=== PATIENT | male | born 1975 | race Caucasian/White ===

== ENCOUNTER 2016-12-17 17:56 | Emergency (ER) | payer BC, MEDICAID ==
[2016-12-17] MEDS ORDERED: Bupivacaine 0.5% 10 ML SDV INJECT ONE (18:02)
[2016-12-17] MEDS ORDERED: Lidocaine 1% 20 ML MDV INJECT ONE (18:02)
--- NOTE | 2016-12-17 18:02 | EDM.PDOC ---
ED HPI GENERAL MEDICAL PROBLEM - General Stated Complaint: PT CUT RT HAND Time Seen by Provider: 12/17/16 18:26 Source of Information: Reports: Patient History Limitations: Reports: No Limitations - History of Present Illness INITIAL COMMENTS - FREE TEXT/NARRATIVE: History of present illness: []Patient was using a chisel to the bottom of a door and it slipped and he cut his left palm of his hand. He denies any other injuries, numbness, tingling. Review of systems: As per history of present illness and below otherwise all systems reviewed and negative. Past medical history: As per history of present illness and as reviewed below otherwise noncontributory. Surgical history: As per history of present illness and as reviewed below otherwise noncontributory. Social history: No reported history of drug or alcohol abuse. Family history: As per history of present illness and as reviewed below otherwise noncontributory. Physical exam: General: Well developed, well nourished in NAD HEENT: Atraumatic, normocephalic, pupils reactive, negative for conjunctival pallor or scleral icterus, mucous membranes moist, throat clear, neck supple, nontender, trachea midline. Lungs: Clear to auscultation, breath sounds equal bilaterally, chest nontender. Heart: S1S2, regular, negative for clicks, rubs, or JVD. Abdomen: Soft, nondistended, nontender. Negative for masses or hepatosplenomegaly. Negative for costovertebral tenderness. Pelvis: Stable nontender. Genitourinary: Deferred. Rectal: Deferred. Extremities: Atraumatic, left thenar eminence with a 2-1/2 cm laceration linear into the subcutaneous tissue. He has full range of motion of his hand sensations intact brisk capillary refill.. Neurovascular unremarkable. Neuro: Awake, alert, oriented. Cranial nerves II through XII unremarkable. Cerebellum unremarkable. Motor and sensory unremarkable throughout. Exam nonfocal. Diagnostics: [] Therapeutics: [] Impression: []Left hand laceration Plan: []Sutures out 7-10 days follow-up as needed with Dr. Laura or return to the ER for any signs of infection or concerns. Definitive disposition and diagnosis as appropriate pending reevaluation and review of above. Left Hand Pain Score (Numeric/FACES): 6 - Related Data Allergies Allergy/AdvReac Type Severity Reaction Status Date / Time No Known Allergies Allergy Verified 02/24/14 22:03 Home Meds: Home Meds . [No Known Home Meds] 12/17/16 [History] Past Medical History - Past Health History Medical/Surgical History: Denies Medical/Surgical History Other Gastrointestinal History: right inguinal hernia Social & Family History - Tobacco Use Smoking Status *Q: Current Every Day Smoker Years of Tobacco use: 10 Used Tobacco, but Quit: No Second Hand Smoke Exposure: Yes - Alcohol Use Days Per Week of Alcohol Use: 2 Number of Drinks Per Day: 6 Total Drinks Per Week: 12 - Recreational Drug Use Recreational Drug Use: Yes Drug Use in Last 12 Months: No Recreational Drug Type: Reports: Cocaine, Marijuana/Hashish, Methamphetamine Recreational Drug Use Frequency: Not Used In Over 1 Year Recreational Drug Last Use: several years ago Review of Systems - Review of Systems Review Of Systems: See Below (See history of present illness) ED EXAM, GENERAL - Physical Exam Exam: See Below (See history of present illness) ED TRAUMA EXTREMITY PROCEDURES - Laceration/Wound Repair Left Hand Lac/Wound Length In cm: 2.5 Appearance: Subcutaneous Distal NVT: Neuro & Vascular Intact Anesthetic Type: Local Local Anesthesia - Lidocaine (Xylocaine): 1% Plain Local Anesthesia - Bupivicaine (Marcaine): 0.5% Plain Local Anesthetic Volume: 2cc Skin Prep: Saline Closed With: Sutures Drain Placement: No Sterile Dressing Applied: Nurse Tetanus Status Addressed: Yes Complications: No Course - Vital Signs Last Recorded V/S: Last Vital Signs Temp 36.3 C 12/17/16 17:59 Pulse 105 H 12/17/16 17:59 Resp 16 12/17/16 17:59 BP 138/90 12/17/16 17:59 Pulse Ox 95 12/17/16 17:59 - Orders/Labs/Meds Meds: Medications Discontinued Medications Generic Name Dose Route Start Last Admin Trade Name Freq PRN Reason Stop Dose Admin Bupivacaine HCl 10 ml 12/17/16 18:02 12/17/16 18:08 Sensorcaine-Mpf 0.5% INJECT 12/17/16 18:03 10 ml ONETIME ONE Administration Lidocaine HCl 20 ml 12/17/16 18:02 12/17/16 18:08 Xylocaine 1% INJECT 12/17/16 18:03 20 ml ONETIME ONE Administration Departure - Departure Time of Disposition: 18:32 Disposition: Still A Patient 30 Condition: Good Clinical Impression: Laceration of left hand Qualifiers: Encounter type: initial encounter Foreign body presence: without foreign body Qualified Code(s): S61.412A - Laceration without foreign body of left hand, initial encounter - Discharge Information Additional Instructions: The following information is given to patients seen in the emergency department who are being discharged to home. This information is to outline your options for follow-up care. We provide all patients seen in our emergency department with a follow-up referral. The need for follow-up, as well as the timing and circumstances, are variable depending upon the specifics of your emergency department visit. If you don't have a primary care physician on staff, we will provide you with a referral. We always advise you to contact your personal physician following an emergency department visit to inform them of the circumstance of the visit and for follow-up with them and/or the need for any referrals to a consulting specialist. The emergency department will also refer you to a specialist when appropriate. This referral assures that you have the opportunity for follow-up care with a specialist. All of these measure are taken in an effort to provide you with optimal care, which includes your follow-up. Under all circumstances we always encourage you to contact your private physician who remains a resource for coordinating your care. When calling for follow-up care, please make the office aware that this follow-up is from your recent emergency room visit. If for any reason you are refused follow-up, please contact the [facility] Emergency Department at and asked to speak to the emergency department charge nurse. Tylenol Motrin for pain ice and elevate above level her heart. Sutures out in 7- 10 days follow-up with hand surgery if needed and otherwise return to the ER for suture removal. [facility] - [facility] Professional Building [address] [place] [address], [address] [place] [address]
[2016-12-17] MEDS ORDERED: Bacitracin Oint 1 GM U/D Packet TOP ONE (18:34)
[2016-12-17 19:14] VITALS: BP 138/90
== END 2016-12-17 18:46 | disposition home or self-care (01) ==
LOC: MW.ED 17:56
DX: S61.412A Laceration without foreign body of left hand, initial encounter (principal); F17.200 Nicotine dependence, unspecified, uncomplicated; W27.0XXA Contact with workbench tool, initial encounter
CPT/HCPCS: 12001; 99282

== ENCOUNTER 2017-01-04 02:46 | Emergency (ER) | payer BC, MEDICAID ==
[2017-01-04] MEDS ORDERED: Ibuprofen 800 MG Tab PO ONE (03:17)
[2017-01-04] MEDS ORDERED: Diphtheria,Pertussis(Acell),Tetanus Vaccine 0.5 ML Syringe IM ONE (03:17)
[2017-01-04] MEDS ORDERED: Cephalexin 500 MG Cap PO ONE (03:19)
[2017-01-04 04:20] VITALS: BP 143/71
== END 2017-01-04 03:51 | disposition home or self-care (01) ==
LOC: MW.ED 02:46
DX: S91.331A Puncture wound without foreign body, right foot, initial encounter (principal); Z23 Encounter for immunization; W45.0XXA Nail entering through skin, initial encounter
CPT/HCPCS: 90471; 90715; 99282; A9270

== ENCOUNTER 2020-06-01 10:58 | Emergency (ER) | payer SELFPAY ==
[2020-06-01] MEDS ORDERED: Sodium Chloride 0.9% 2.5 ML Syringe FLUSH PRN (11:03)
[2020-06-01] MEDS ORDERED: Sodium Chloride 0.9% 10 ML Syringe FLUSH PRN (11:03)
--- NOTE | 2020-06-01 11:37 | EDM.PDOC ---
ED HPI GENERAL MEDICAL PROBLEM - General Chief Complaint: Respiratory Problem Stated Complaint: CHEST PAIN Time Seen by Provider: 06/01/20 11:02 - History of Present Illness INITIAL COMMENTS - FREE TEXT/NARRATIVE: Patient is a 44-year-old male he is on a medication for notable bowel syndrome. He developed fever fatigue myalgias and cough approximately 1 week before testing positive for COVID-19 on May 27. Since he is tested positive he has had generalized chest ache primarily on the left side. He has had a persistent cough and some shortness of breath as well. He has had remittent chills and fever. No nausea or vomiting no abdominal pain or diarrhea. Patient presents today wanting to be checked out because the chest pain is persisted. Chest pain worsens with coughing no alleviating factors. The patient is a smoker he has no personal cardiac history. Chest/Cough Pain Score (Numeric/FACES): 4 - Related Data Allergies Allergy/AdvReac Type Severity Reaction Status Date / Time No Known Allergies Allergy Verified 06/01/20 11:27 Home Meds: Home Meds Dm/Acetaminophen/Doxylamine [Cough & Sore Throat Liquid] 1 dose PO ASDIRECTED 06/01/20 [History] Past Medical History - Past Health History Medical/Surgical History: Denies Medical/Surgical History HEENT History: Reports: None Cardiovascular History: Reports: None Respiratory History: Reports: None Gastrointestinal History: Reports: Other (See Below) Other Gastrointestinal History: right inguinal hernia. Ulcerative Colitis Genitourinary History: Reports: None Musculoskeletal History: Reports: None Neurological History: Reports: None Psychiatric History: Reports: None Endocrine/Metabolic History: Reports: None Hematologic History: Reports: None Immunologic History: Reports: None Oncologic (Cancer) History: Reports: None Dermatologic History: Reports: None - Infectious Disease History Infectious Disease History: Reports: None - Past Surgical History Head Surgeries/Procedures: Reports: None GI Surgical History: Reports: Hernia, Abdominal Musculoskeletal Surgical History: Reports: Shoulder Surgery Social & Family History - Family History Family Medical History: No Pertinent Family History - Tobacco Use Tobacco Use Status *Q: Unknown Ever Used Tobacco - Caffeine Use Caffeine Use: Reports: None - Recreational Drug Use Recreational Drug Use: No ED ROS GENERAL - Review of Systems Review Of Systems: See Below Free Text/Narrative/Comment: General: Per HPI Skin: No rash. Eyes: No vision problems. ENT: No sore throat. Neck: No neck stiffness. Respiratory: Per HPI Cardiac: Per HPI Gastrointestinal: No nausea, vomiting or abdominal pain. Musculoskeletal: No myalgias/arthralgias. Neurologic: No headache. ED EXAM, GENERAL - Physical Exam Exam: See Below Free Text/Narrative:: General Appearance: No acute distress, appears comfortable Skin: No rash HEENT: Normocephalic/atraumatic, sclera anicteric, mucous membranes moist Neck: Normal range of motion Chest and Lungs: Bilateral breath sounds, diffuse end expiratory wheezing with normal work of breathing Cardiovascular: Regular rate and rhythm, no murmur Abdomen: Soft, non-tender Back: Normal Musculoskeletal: No edema or tenderness Neurologic: Awake, alert, no obvious deficits, moving all extremities Psychiatric: Appropriate, cooperative #1 Interpretation EKG Date: 06/01/20 Time: 11:38 EKG Interpretation Comments: Normal sinus rhythm with a rate of 76 normal axis and intervals without acute ischemia QTC 414 Course - Vital Signs Last Recorded V/S: Last Vital Signs Temp 98.9 F 06/01/20 11:28 Pulse 94 06/01/20 11:28 Resp 17 06/01/20 11:28 BP 124/80 06/01/20 11:28 Pulse Ox 98 06/01/20 11:28 - Orders/Labs/Meds Orders: Active Orders 24 hr Category Date Time Status EKG Documentation Completion [RC] AM Care 06/01/20 11:03 Active Sodium Chloride 0.9% [Saline Flush] Med 06/01/20 11:03 Active 10 ml FLUSH ASDIRECTED PRN Sodium Chloride 0.9% [Saline Flush] Med 06/01/20 11:03 Active 2.5 ml FLUSH ASDIRECTED PRN Saline Lock Insert [OM.PC] Stat Oth 06/01/20 11:03 Ordered Medication Orders Sodium Chloride (Saline Flush) 10 ml FLUSH ASDIRECTED PRN PRN Reason: Keep Vein Open Sodium Chloride (Saline Flush) 2.5 ml FLUSH ASDIRECTED PRN PRN Reason: Keep Vein Open Labs: Laboratory Tests 06/01/20 06/01/20 Range/Units 11:38 11:38 WBC 7.37 (4.0-11.0) K/uL RBC 5.10 (4.50-5.90) M/uL Hgb 15.8 (13.0-17.0) g/dL Hct 46.0 (38.0-50.0) % MCV 90.2 (80.0-98.0) fL MCH 31.0 (27.0-32.0) pg MCHC 34.3 (31.0-37.0) g/dL RDW Std Deviation 40.4 (28.0-62.0) fl RDW Coeff of Mily 12 (11.0-15.0) % Plt Count 320 (150-400) K/uL MPV 11.40 (7.40-12.00) fL Neut % (Auto) 68.7 (48.0-80.0) % Lymph % (Auto) 17.9 (16.0-40.0) % [place] % (Auto) 11.9 (0.0-15.0) % Eos % (Auto) 1.2 (0.0-7.0) % Baso % (Auto) 0.3 (0.0-1.5) % Neut # (Auto) 5.1 (1.4-5.7) K/uL Lymph # (Auto) 1.3 (0.6-2.4) K/uL [place] # (Auto) 0.9 H (0.0-0.8) K/uL Eos # (Auto) 0.1 (0.0-0.7) K/uL Baso # (Auto) 0.0 (0.0-0.1) K/uL Nucleated RBC % 0.0 /100WBC Nucleated RBCs # 0 K/uL Sodium 136 (136-148) mmol/L Potassium 4.2 (3.5-5.1) mmol/L Chloride 104 (98-107) mmol/L Carbon Dioxide 25.7 (21.0-32.0) mmol/L BUN 14 (7.0-18.0) mg/dL Creatinine 0.8 (0.8-1.3) mg/dL Est Cr Clr Drug Dosing 138.40 mL/min Estimated GFR (MDRD) > 60.0 ml/min Glucose 107 H (74-106) mg/dL Calcium 9.1 (8.5-10.1) mg/dL Total Bilirubin 0.5 (0.2-1.0) mg/dL AST 21 (15-37) IU/L ALT 25 (14-63) IU/L Alkaline Phosphatase 59 (46-116) U/L Troponin I < 0.050 (0.000-0.056) ng/mL Total Protein 7.6 (6.4-8.2) g/dL Albumin 3.1 L (3.4-5.0) g/dL Globulin 4.5 H (2.6-4.0) g/dL Albumin/Globulin Ratio 0.7 L (0.9-1.6) Meds: Medications Generic Name Dose Route Start Last Admin Trade Name Freq PRN Reason Stop Dose Admin Sodium Chloride 10 ml 06/01/20 11:03 Saline Flush FLUSH ASDIRECTED PRN Keep Vein Open Sodium Chloride 2.5 ml 06/01/20 11:03 Saline Flush FLUSH ASDIRECTED PRN Keep Vein Open Departure - Departure Time of Disposition: 12:30 Disposition: Home, Self-Care 01 Condition: Good Clinical Impression: Bronchitis due to COVID-19 virus - Discharge Information *PRESCRIPTION DRUG MONITORING PROGRAM REVIEWED*: Not Applicable *COPY OF PRESCRIPTION DRUG MONITORING REPORT IN PATIENT LINDA: Not Applicable Instructions: COVID-19 Frequently Asked Questions, Metered Dose Inhaler (No Spacer Used) Referrals: PCP,None [Primary Care Provider] - Forms: ED Department Discharge Additional Instructions: I encourage you to use the albuterol inhaler 2 puffs every 4-6 hours while you are awake. You should start to feel better over the next several days. If your symptoms worsen or you have any other new symptoms that concern you please call your doctor or return to the ER. The following information is given to patients seen in the emergency department who are being discharged to home. This information is to outline your options for follow-up care. We provide all patients seen in our emergency department with a follow-up referral. The need for follow-up, as well as the timing and circumstances, are variable depending upon the specifics of your emergency department visit. If you don't have a primary care physician on staff, we will provide you with a referral. We always advise you to contact your personal physician following an emergency department visit to inform them of the circumstance of the visit and for follow-up with them and/or the need for any referrals to a consulting specialist. The emergency department will also refer you to a specialist when appropriate. This referral assures that you have the opportunity for follow-up care with a specialist. All of these measure are taken in an effort to provide you with optimal care, which includes your follow-up. Under all circumstances we always encourage you to contact your private physician who remains a resource for coordinating your care. When calling for follow-up care, please make the office aware that this follow-up is from your recent emergency room visit. If for any reason you are refused follow-up, please contact the [facility] Emergency Department at and asked to speak to the emergency department charge nurse. Sepsis Event Note (ED) - Evaluation Sepsis Screening Result: Possible Sepsis Risk - Focused Exam Vital Signs: Vital Signs Temp Pulse Resp BP Pulse Ox 06/01/20 11:28 98.9 F 94 17 124/80 98 - My Orders Last 24 Hours: My Active Orders 06/01/20 11:03 EKG Documentation Completion [RC] AM Sodium Chloride 0.9% [Saline Flush] 10 ml FLUSH ASDIRECTED PRN Sodium Chloride 0.9% [Saline Flush] 2.5 ml FLUSH ASDIRECTED PRN Saline Lock Insert [OM.PC] Stat - Assessment/Plan Last 24 Hours: My Active Orders 06/01/20 11:03 EKG Documentation Completion [RC] AM Sodium Chloride 0.9% [Saline Flush] 10 ml FLUSH ASDIRECTED PRN Sodium Chloride 0.9% [Saline Flush] 2.5 ml FLUSH ASDIRECTED PRN Saline Lock Insert [OM.PC] Stat Assessment:: Patient is an otherwise relatively well 44-year-old male presenting with persistent chest pain in the setting of COVID-19 infection. I suspect his symptoms are most likely due to the cough related to the COVID-19. However multiple other etiologies have been considered as well. Regarding ACS the patient's EKG is completely normal chest pain is not exertional and is primarily worsened by coughing. He has no personal history of cardiac dysfunction and his pain has been constant for the last 4 days. Given that I think single troponin should be sufficient to exclude ACS as his heart score is low. PE cons idered but the patient is neither tachycardic nor hypoxic he has no pleuritic component to his chest pain think PE is very unlikely in the setting. He is PERC negative. Overlying pneumonia pneumothorax considered I think they are unlikely as well but chest x-ray is pending. Patient's work of breathing is normal. Evaluation is reassuring I think his symptoms can be safely attributed to Covid infection. Given duration since symptom onset he is not a candidate for remdesivir or other directed therapies. Given that he does not require oxygen he is not a candidate for Decadron. 1220: Patient's labs are unremarkable white blood cell count is normal. Chest x-ray demonstrates pneumonia more prominent on the right side. That said is not a severe focal consolidation patient's white blood cell count is normal I think bacterial pneumonia is unlikely in the setting of the patient's positive Covid diagnosis. Patient's vital signs are normal his work of breathing is normal. However he does have expiratory wheezing I think he is a Covid related bronchitis and albuterol inhaler prescribed and return precautions discussed and understood.
--- NOTE | 2020-06-01 12:04 | CR ---
INDICATION: Chest pain, dyspnea and sweating. History of COVID COMPARISON: January 15, 2015 TECHNIQUE: Single-view chest radiograph obtained portable FINDINGS: TUBES AND LINES: None. HEART AND MEDIASTINUM: The heart size is normal. The mediastinal contour appears normal for patient age. LUNGS AND PLEURAL SPACES: Airspace disease in the right mid lung consistent with pneumonia.This is [id number]. The remainder of the right lung in the entirety of the left lung appear normal.No pleural effusion or pneumothorax OSSEOUS STRUCTURES: Age-appropriate appearance. No acute focal finding. IMPRESSION: Right-sided airspace disease consistent with pneumonia. Dictated by Marcello Livingston MD @ Jun 01 2020 12:00PM Signed by Dr. Marcello Livingston @ Jun 01 2020 12:02PM
[2020-06-01 12:09] LABS: BLOOD UREA NITROGEN,BUN 14 mg/dL (7.0-18.0); CARBON DIOXIDE,CO2 25.7 mmol/L (21.0-32.0); CHLORIDE,CL 104 mmol/L (98-107); GLUCOSE RANDOM 107 mg/dL (74-106); POTASSIUM,K 4.2 mmol/L (3.5-5.1); SODIUM,NA 136 mmol/L (136-148)
[2020-06-01] MEDS ORDERED: Albuterol HFA 18 Gm Inhaler INH ONE (12:31)
[2020-06-01 12:55] VITALS: BP 124/70; PULSE 77
== END 2020-06-01 12:45 | disposition home or self-care (01) ==
LOC: MW.ED 10:58
DX: U07.1 COVID-19 (principal); J40 Bronchitis, not specified as acute or chronic
CPT/HCPCS: 36415; 71045; 71045-26; 80053; 84484; 85025; 93005; 93010; 99283; 99285-25; J3535-GY

== ENCOUNTER 2021-03-16 23:47 | Emergency (ER) | payer OTHER ==
[2021-03-17] MEDS ORDERED: Acetaminophen 500 MG Tab PO ONE (01:22)
[2021-03-17] MEDS ORDERED: Sodium Chloride 0.9% 1,000 ML IV ONE (01:22)
[2021-03-17] MEDS ORDERED: Sodium Chloride 0.9% 10 ML Syringe FLUSH PRN (01:22)
[2021-03-17] MEDS ORDERED: Sodium Chloride 0.9% 2.5 ML Syringe FLUSH PRN (01:22)
--- NOTE | 2021-03-17 02:02 | CR ---
Indication: Fever Technique: Chest 1 view Comparison: Chest x-ray 06/01/2020 Findings/Impression: Cardiovascular and mediastinum: Heart size and vasculature are normal in caliber and appearance. Lungs and pleural space: Lungs are clear. No sign of infiltrate or mass. No sign of pleural effusion. No pneumothorax. Bones and soft tissues: No acute findings. Dictated by José Manuel Nguyễn MD @ 03/17/2021 2:01:01 AM (Electronically Signed)
[2021-03-17 02:16] LABS: CARBON DIOXIDE,CO2 25.8 mmol/L (21.0-32.0); POTASSIUM,K 4.2 mmol/L (3.5-5.1)
--- NOTE | 2021-03-17 03:11 | EDM.PDOC ---
ED HPI GENERAL MEDICAL PROBLEM - General Chief Complaint: Respiratory Problem Stated Complaint: NOT FEELING WELL Time Seen by Provider: 03/17/21 01:19 - History of Present Illness INITIAL COMMENTS - FREE TEXT/NARRATIVE: HISTORY AND PHYSICAL: History of present illness: This a 45-year-old gentleman who has been in shelter for approximately 2 weeks presents ER today secondary to fevers at the shelter and generalized weakness. Patient reports he has had cough and congestion. Patient has any sore throat or ear pain. Patient has any rash or joint pains. Patient has any chest pain or shortness of breath. Patient has a lower extremity edema. Patient has any nodules on his skin. Patient has any history of IV drug use. Patient denies any weakness to his upper or lower extremities. Patient denies any pain to his cervical, thoracic, lumbar spine. Patient has any weakness to his upper or lower extremities. Patient has any loss of bowel or bladder function. Patient had a Covid test at the shelter which was negative. Patient reports has been tolerating p.o. solids and liquids fairly well. Patient denies any dysuria, frequency, urgency, polyuria, hematuria. Review of systems: As per history of present illness and below otherwise all systems reviewed and negative. Past medical history: As per history of present illness and as reviewed below otherwise noncontributory. Surgical history: As per history of present illness and as reviewed below otherwise noncontributory. Social history: No reported history of drug abuse. Family history: As per history of present illness and as reviewed below otherwise noncon tributory. Physical exam: This patient was seen and evaluated during the 2019 SARS-CoV-2 novel coronavirus pandemic period. Community viral transmission is ongoing at time of this encounter and the emergency department is operating under pandemic response procedures. Constitutional: Patient is oriented to person, place, and time. Appears well- developed and well-nourished. No distress. HEENT: Moist mucous membranes Head: Normocephalic and atraumatic Eyes: Right eye exhibits no discharge. Left eye exhibits no discharge. No scleral icterus Neck: Normal range of motion. No tracheal deviation present. Cardiovascular: Normal rate and regular rhythm. Pulmonary: Effort normal, no respiratory distress. Abdominal: No distention Musculoskeletal: Normal range of motion Neurologic: Alert and oriented to person, place and time. Skin: [place], warm and dry. Psychiatric: Normal mood and affect. Behavior is normal. Judgment and thought content normal. Nursing note and vital signs have been reviewed Diagnostics: Chest Xray: Normal cardiac silhouette No infiltrates or effusions identified. No PTX No evidence of acute bony fracture. As interpreted by ER MD: Kimberlee CBC reveals elevated WBC count otherwise normal Therapeutics: NSS x1 L, acetaminophen 1 g p.o., Rocephin, doxycycline Assessment and plan: 45-year-old gentleman who presents ER today with fever of unclear etiology. Patient does have a markedly elevated WBC count with no known source. Patient has been given a dose of Rocephin IV here in the ED secondary to his fever. Patient be discharged home with a prescription for Augmentin to empirically cover for early pulmonary source as well as doxycycline. Patient has no evidence of sepsis at this time. Patient's blood pressure is within normal limits. Reassessment at the time of disposition demonstrates that the patient is in no acute distress. The patient has remained stable throughout the entire ED visit and is without objective evidence for acute process requiring urgent intervention or hospitalization. The patient is stable for discharge, counseling is provided as documented above, discussed symptomatic treatment and specific conditions for return. I have spoken with the patient/caregiver and discussed todays findings, in addition to providing specific details for the plan of care. Questions are answered and there is agreement with the plan. Definitive disposition and diagnosis as appropriate pending reevaluation and review of above. - Related Data Allergies Allergy/AdvReac Type Severity Reaction Status Date / Time No Known Allergies Allergy Verified 06/01/20 11:27 Home Meds: Home Meds Dm/Acetaminophen/Doxylamine [Cough & Sore Throat Liquid] 1 dose PO ASDIRECTED 06/01/20 [History] Amoxicillin/Clavulanate K [Augmentin 875-125 MG] 1 tab PO Q12HR 10 Days #20 tab 03/17/21 [Rx] Doxycycline [Vibramycin] 100 mg PO BID #20 cap 03/17/21 [Rx] Past Medical History - Past Health History Medical/Surgical History: Denies Medical/Surgical History HEENT History: Reports: None Cardiovascular History: Reports: None Respiratory History: Reports: None Gastrointestinal History: Reports: Other (See Below) Other Gastrointestinal History: right inguinal hernia. Ulcerative Colitis Genitourinary History: Reports: None Musculoskeletal History: Reports: None Neurological History: Reports: None Psychiatric History: Reports: None Endocrine/Metabolic History: Reports: None Hematologic History: Reports: None Immunologic History: Reports: None Oncologic (Cancer) History: Reports: None Dermatologic History: Reports: None - Infectious Disease History Infectious Disease History: Reports: None, Chicken Pox - Past Surgical History Head Surgeries/Procedures: Reports: None GI Surgical History: Reports: Hernia, Abdominal Musculoskeletal Surgical History: Reports: Shoulder Surgery Social & Family History - Family History Family Medical History: No Pertinent Family History - Tobacco Use Tobacco Use Status *Q: Current Every Day Tobacco User Years of Tobacco use: 30 Packs/Tins Daily: 1 - Caffeine Use Caffeine Use: Reports: Energy Drinks - Recreational Drug Use Recreational Drug Type: 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 Recreational Drug Use Frequency: Daily ED ROS GENERAL - Review of Systems Review Of Systems: See Below ED EXAM, GENERAL - Physical Exam Exam: See Below #1 Interpretation EKG Interpretation Comments: March 17, 2021 12:19 AM EKG: As interpreted by ER physician: Kimberlee: Nonspecific ST-T wave abnormalities Normal axis No evidence of ST elevation DC Normal sinus rhythm heart rate of 95 Course - Vital Signs Last Recorded V/S: Last Vital Signs Temp 97 F 03/17/21 01:19 Pulse 82 03/17/21 01:19 Resp 18 03/17/21 01:19 BP 103/52 L 03/17/21 01:19 Pulse Ox 96 03/17/21 01:19 - Orders/Labs/Meds Orders: Active Orders 24 hr Category Date Time Status UA W/MICROSCOPIC [URIN] Stat Lab 03/17/21 03:03 Results Sodium Chloride 0.9% [Saline Flush] Med 03/17/21 01:22 Active 10 ml FLUSH ASDIRECTED PRN Sodium Chloride 0.9% [Saline Flush] Med 03/17/21 01:22 Active 2.5 ml FLUSH ASDIRECTED PRN cefTRIAXone [Rocephin in Dextrose,Iso-Osm 1 GM/50 ML] 1 Med 03/17/21 03:14 Active gm Premix Bag 1 bag IV ONETIME Isolation [COMM] Routine Oth 03/17/21 01:22 Active Saline Lock Insert [OM.PC] Stat Oth 03/17/21 01:22 Ordered Medication Orders Ceftriaxone Sodium/Dextrose 1 (gm/ Premix) 50 mls @ 100 mls/hr IV ONETIME ONE Stop: 03/17/21 03:43 Last Admin: 03/17/21 03:22 Dose: 100 mls/hr Documented by: NEW Sodium Chloride (Sodium Chloride 0.9% 10 Ml Syringe) 10 ml FLUSH ASDIRECTED PRN PRN Reason: Keep Vein Open Last Admin: 03/17/21 01:51 Dose: 10 ml Documented by: WON Sodium Chloride (Sodium Chloride 0.9% 2.5 Ml Syringe) 2.5 ml FLUSH ASDIRECTED PRN PRN Reason: Keep Vein Open Last Admin: 03/17/21 01:51 Dose: 2.5 ml Documented by: WON Labs: Laboratory Tests 03/17/21 03/17/21 03/17/21 Range/Units 01:40 01:45 01:45 WBC 22.51 H (4.0-11.0) K/uL RBC 4.50 (4.50-5.90) M/uL Hgb 13.9 (13.0-17.0) g/dL Hct 39.9 (38.0-50.0) % MCV 88.7 (80.0-98.0) fL MCH 30.9 (27.0-32.0) pg MCHC 34.8 (31.0-37.0) g/dL RDW Std Deviation 40.6 (28.0-62.0) fl RDW Coeff of Mily 13 (11.0-15.0) % Plt Count 318 (150-400) K/uL MPV 10.30 (7.40-12.00) fL Add Manual Diff YES Neutrophils % (Manual) 82 H (48.0-80.0) % Band Neutrophils % 6 % Lymphocytes % (Manual) 5 L (16.0-40.0) % Monocytes % (Manual) 7 (0.0-15.0) % Nucleated RBC % 0.0 /100WBC Absolute Seg Neuts 18.5 H (1.4-5.7) Band Neutrophils # 1.4 Lymphocytes # (Manual) 1.1 (0.6-2.4) Monocytes # (Manual) 1.6 H (0.0-0.8) Nucleated RBCs # 0 K/uL Sodium 136 (136-148) mmol/L Potassium 4.2 (3.5-5.1) mmol/L Chloride 98 (98-107) mmol/L Carbon Dioxide 25.8 (21.0-32.0) mmol/L BUN 25 H (7.0-18.0) mg/dL Creatinine 1.5 H (0.8-1.3) mg/dL Est Cr Clr Drug Dosing 67.11 mL/min Estimated GFR (MDRD) 50.4 ml/min Glucose 123 H (74-106) mg/dL Calcium 8.0 L (8.5-10.1) mg/dL Total Bilirubin 0.9 (0.2-1.0) mg/dL AST 106 H (15-37) IU/L ALT 82 H (14-63) IU/L Alkaline Phosphatase 80 (46-116) U/L Total Protein 7.4 (6.4-8.2) g/dL Albumin 3.2 L (3.4-5.0) g/dL Globulin 4.2 H (2.6-4.0) g/dL Albumin/Globulin Ratio 0.8 L (0.9-1.6) Urine Color Urine Appearance Urine pH (5.0-8.0) Ur Specific Mckenzie (1.001-1.035) Urine Protein (NEGATIVE) mg/dL Urine Glucose (UA) (NEGATIVE) mg/dL Urine Ketones (NEGATIVE) mg/dL Urine Occult Blood (NEGATIVE) Urine Nitrite (NEGATIVE) Urine Bilirubin (NEGATIVE) Urine Urobilinogen (<2.0) EU/dL Ur Leukocyte Esterase (NEGATIVE) SARS-CoV-2 RNA (NELSY) NEGATIVE (NEGATIVE) 03/17/21 Range/Units 03:03 WBC (4.0-11.0) K/uL RBC (4.50-5.90) M/uL Hgb (13.0-17.0) g/dL Hct (38.0-50.0) % MCV (80.0-98.0) fL MCH (27.0-32.0) pg MCHC (31.0-37.0) g/dL RDW Std Deviation (28.0-62.0) fl RDW Coeff of Mily (11.0-15.0) % Plt Count (150-400) K/uL MPV (7.40-12.00) fL Add Manual Diff Neutrophils % (Manual) (48.0-80.0) % Band Neutrophils % % Lymphocytes % (Manual) (16.0-40.0) % Monocytes % (Manual) (0.0-15.0) % Nucleated RBC % /100WBC Absolute Seg Neuts (1.4-5.7) Band Neutrophils # Lymphocytes # (Manual) (0.6-2.4) Monocytes # (Manual) (0.0-0.8) Nucleated RBCs # K/uL Sodium (136-148) mmol/L Potassium (3.5-5.1) mmol/L Chloride (98-107) mmol/L Carbon Dioxide (21.0-32.0) mmol/L BUN (7.0-18.0) mg/dL Creatinine (0.8-1.3) mg/dL Est Cr Clr Drug Dosing mL/min Estimated GFR (MDRD) ml/min Glucose (74-106) mg/dL Calcium (8.5-10.1) mg/dL Total Bilirubin (0.2-1.0) mg/dL AST (15-37) IU/L ALT (14-63) IU/L Alkaline Phosphatase (46-116) U/L Total Protein (6.4-8.2) g/dL Albumin (3.4-5.0) g/dL Globulin (2.6-4.0) g/dL Albumin/Globulin Ratio (0.9-1.6) Urine Color YELLOW Urine Appearance SLT CLOUDY Urine pH 6.0 (5.0-8.0) Ur Specific [place] 1.020 (1.001-1.035) Urine Protein 30 H (NEGATIVE) mg/dL Urine Glucose (UA) NEGATIVE (NEGATIVE) mg/dL Urine Ketones NEGATIVE (NEGATIVE) mg/dL Urine Occult Blood MODERATE H (NEGATIVE) Urine Nitrite POSITIVE H (NEGATIVE) Urine Bilirubin NEGATIVE (NEGATIVE) Urine Urobilinogen 0.2 (<2.0) EU/dL Ur Leukocyte Esterase LARGE H (NEGATIVE) SARS-CoV-2 RNA (NELSY) (NEGATIVE) Meds: Medications Generic Name Dose Route Start Last Admin Trade Name Freq PRN Reason Stop Dose Admin Ceftriaxone Sodium/Dextrose 1 50 mls @ 100 mls/hr 03/17/21 03:14 03/17/21 03:22 gm/ Premix IV 03/17/21 03:43 100 mls/hr ONETIME ONE Administration Sodium Chloride 10 ml 03/17/21 01:22 03/17/21 01:51 Sodium Chloride 0.9% 10 Ml Syringe FLUSH 10 ml ASDIRECTED PRN Administration Keep Vein Open Sodium Chloride 2.5 ml 03/17/21 01:22 03/17/21 01:51 Sodium Chloride 0.9% 2.5 Ml Syringe FLUSH 2.5 ml ASDIRECTED PRN Administration Keep Vein Open Discontinued Medications Generic Name Dose Route Start Last Admin Trade Name Freq PRN Reason Stop Dose Admin Acetaminophen 1,000 mg 03/17/21 01:22 03/17/21 01:39 Acetaminophen 500 Mg Tab PO 03/17/21 01:23 1,000 mg ONETIME ONE Administration Doxycycline Hyclate 100 mg 03/17/21 03:14 03/17/21 03:23 Doxycycline 100 Mg Cap PO 03/17/21 03:15 100 mg ONETIME ONE Administration Sodium Chloride 1,000 mls @ 999 mls/hr 03/17/21 01:22 03/17/21 01:46 Normal Saline IV 03/17/21 02:22 999 mls/hr .Bolus ONE Administration Departure - Departure Time of Disposition: 03:27 Disposition: Home, Self-Care 01 Condition: Good Clinical Impression: Fever, Leukocytosis, Fever, unknown origin - Discharge Information Prescriptions: Amoxicillin/Clavulanate K [Augmentin 875-125 MG] 1 tab PO Q12HR 10 Days #20 tab Doxycycline [Vibramycin] 100 mg PO BID #20 cap Instructions: Leukocytosis, Fever, Adult, [id number] Referrals: PCP,None [Primary Care Provider] - Forms: ED Department Discharge Additional Instructions: You were seen and evaluated in the ER today secondary to fever of unclear source. Your Covid test, influenza test, and the remainder of your blood work have all been normal except for an elevated white blood cell count. You have been given a dose of IV antibiotics here in the ED and you will be sent home w ith a prescription for Augmentin and doxycycline as a broad-spectrum antibiotic to cover you for possible pulmonary source or other sources of infection. Please take your antibiotics as prescribed. Please notify the shelter staff immediately if any new or concerning symptoms for reevaluation. The following information is given to patients seen in the emergency department who are being discharged to home. This information is to outline your options for follow-up care. We provide all patients seen in our emergency department with a follow-up referral. The need for follow-up, as well as the timing and circumstances, are variable depending upon the specifics of your emergency department visit. If you don't have a primary care physician on staff, we will provide you with a referral. We always advise you to contact your personal physician following an emergency department visit to inform them of the circumstance of the visit and for follow-up with them and/or the need for any referrals to a consulting specialist. The emergency department will also refer you to a specialist when appropriate. This referral assures that you have the opportunity for follow-up care with a specialist. All of these measure are taken in an effort to provide you with optimal care, which includes your follow-up. Under all circumstances we always encourage you to contact your private physician who remains a resource for coordinating your care. When calling for follow-up care, please make the office aware that this follow-up is from your recent emergency room visit. If for any reason you are refused follow-up, please contact the [facility] Emergency Department at and asked to speak to the emergency department charge nurse. [facility] [address] [place] [address] [place] [address] Sepsis Event Note (ED) - Evaluation Sepsis Screening Result: No Definite Risk - Focused Exam Vital Signs: Vital Signs Temp Pulse Resp BP Pulse Ox 03/17/21 01:19 97 F 82 18 103/52 L 96 - My Orders Last 24 Hours: My Active Orders 03/17/21 01:22 Sodium Chloride 0.9% [Saline Flush] 10 ml FLUSH ASDIRECTED PRN Sodium Chloride 0.9% [Saline Flush] 2.5 ml FLUSH ASDIRECTED PRN Isolation [COMM] Routine Saline Lock Insert [OM.PC] Stat 03/17/21 03:03 UA W/MICROSCOPIC [URIN] Stat 03/17/21 03:14 cefTRIAXone [Rocephin in Dextrose,Iso-Osm 1 GM/50 ML] 1 gm Premix Bag 1 bag IV ONETIME - Assessment/Plan Last 24 Hours: My Active Orders 03/17/21 01:22 Sodium Chloride 0.9% [Saline Flush] 10 ml FLUSH ASDIRECTED PRN Sodium Chloride 0.9% [Saline Flush] 2.5 ml FLUSH ASDIRECTED PRN Isolation [COMM] Routine Saline Lock Insert [OM.PC] Stat 03/17/21 03:03 UA W/MICROSCOPIC [URIN] Stat 03/17/21 03:14 cefTRIAXone [Rocephin in Dextrose,Iso-Osm 1 GM/50 ML] 1 gm Premix Bag 1 bag IV ONETIME
[2021-03-17] MEDS ORDERED: cefTRIAXone 1 GM in Premix Bag 1 BAG IV ONE (03:14)
[2021-03-17] MEDS ORDERED: Doxycycline 100 MG Cap PO ONE (03:14)
[2021-03-17 03:51] VITALS: BP 102/66; PULSE 77
== END 2021-03-17 03:49 ==
LOC: MW.ED 23:47
DX: D72.829 Elevated white blood cell count, unspecified (principal); R50.9 Fever, unspecified; Z72.0 Tobacco use; Z20.822 Contact with and (suspected) exposure to COVID-19
CPT/HCPCS: 36415; 71045; 80053; 81001; 85025; 87635; 87804; 93005; 96365; 99285; A9270; J0696; J7030; U0002

== ENCOUNTER 2021-06-25 17:56 | Emergency (ER) | payer MEDICAID, OTHER ==
[2021-06-25 18:11] VITALS: BP 136/82; PULSE 85
== END 2021-06-25 20:00 | disposition left against medical advice (07) ==
LOC: MW.ED 17:56
DX: B34.9 Viral infection, unspecified (principal); Z86.16 Personal history of COVID-19
CPT/HCPCS: 71045; 71045-26; 87804; 99283-25; U0002

== ENCOUNTER 2022-09-07 19:34 | Emergency (ER) | payer MEDICAID, OTHER ==
[2022-09-07] MEDS ORDERED: Lidocaine 1% PF 2 ML SDV INJECT ONE (19:45)
[2022-09-07] MEDS ORDERED: Diphtheria,Pertussis(Acell),Tetanus Vaccine 0.5 ML Syringe IM ONE (21:21)
[2022-09-07] MEDS ORDERED: Lidocaine/Epineph/Tetracaine 3 ML Syringe TOP STA (23:14)
[2022-09-07] MEDS ORDERED: Acetaminophen 325 MG Tab PO ONE (23:22)
[2022-09-07] MEDS ORDERED: Ibuprofen 400 MG Tab PO ONE (23:22)
[2022-09-07] MEDS ORDERED: Cephalexin 500 MG Cap PO ONE (23:22)
[2022-09-08 00:20] VITALS: BP 120/76; PULSE 70
== END 2022-09-08 00:48 | disposition home or self-care (01) ==
LOC: MW.ED 19:34
DX: S81.812A Laceration without foreign body, left lower leg, initial encounter (principal); Z72.0 Tobacco use; W26.0XXA Contact with knife, initial encounter
CPT/HCPCS: 12004; 99282; A9270

== ENCOUNTER 2022-09-26 12:11 | Emergency (ER) | payer SELFPAY ==
[2022-09-26 13:23] LABS: CORONAVIRUS COVID-19 NAA NEGATIVE (NEGATIVE); INFLUENZA A NAA NEGATIVE (NEGATIVE); INFLUENZA B NAA NEGATIVE (NEGATIVE); RESPIRATORY SYNCYTIAL VIR NAA NEGATIVE (NEGATIVE)
[2022-09-26 14:50] VITALS: BP 117/88; PULSE 89
== END 2022-09-26 14:16 | disposition home or self-care (01) ==
LOC: MW.ED 12:11
DX: J15.9 Unspecified bacterial pneumonia (principal); F17.210 Nicotine dependence, cigarettes, uncomplicated; Z20.822 Contact with and (suspected) exposure to COVID-19
CPT/HCPCS: 0241U; 71046; 99283

== ENCOUNTER 2022-12-30 15:56 | Emergency (ER) | payer SELFPAY ==
[2022-12-31 01:00] VITALS: BP 116/69; PULSE 88
== END 2022-12-30 18:35 | disposition home or self-care (01) ==
LOC: MW.ED 15:56
DX: M25.462 Effusion, left knee (principal); F17.210 Nicotine dependence, cigarettes, uncomplicated
CPT/HCPCS: 73562-26-LT; 73562-LT; 99283

== ENCOUNTER 2023-04-03 17:55 | Emergency (ER) | payer MEDICAID ==
[2023-04-03] MEDS ORDERED: Lidocaine 4% 1 each Patch TOP STA (18:39)
[2023-04-03] MEDS ORDERED: Ketorolac 30 MG/ML SDV IM ONE (18:39)
[2023-04-03 19:18] VITALS: BP 127/68; PULSE 79
== END 2023-04-03 19:17 | disposition home or self-care (01) ==
LOC: MW.ED 17:55
DX: R07.81 Pleurodynia (principal)
CPT/HCPCS: 71046; 96372; 99283; A9270; J1885

== ENCOUNTER 2024-05-26 06:48 | Day surgery (SDC) | payer MEDICAID ==
[~2024-05-26 06:48] MED LIST: Sodium Chloride 0.9% 10 ML Syringe FLUSH PRN; Sodium Chloride 0.9% 2.5 ML Syringe FLUSH PRN; Sodium Chloride 0.9% 20 ML SDV IV PRN; ceFAZolin 2 GM in Sodium Chloride 0.9% 50 ML IV ONE
[2024-05-26] MEDS ORDERED: Bupivacaine 0.5% 30 ML SDV ONE (07:19)
[2024-05-26] MEDS ORDERED: Albuterol 0.083% 2.5 MG/3 ML Neb Soln NEB PRN (07:24)
[2024-05-26] MEDS ORDERED: Ondansetron 4 MG/2 ML SDV IVPUSH PRN (07:24)
[2024-05-26] MEDS ORDERED: Metoclopramide 10 MG/2 ML SDV IVPUSH PRN (07:24)
[2024-05-26] MEDS ORDERED: fentaNYL 50 MCG/ML SDV IVPUSH PRN (07:24)
[2024-05-26] MEDS ORDERED: Phenylephrine HCl In 0.9% NaCl 1 MG/10 ML Syringe IVPUSH PRN (07:24)
[2024-05-26] MEDS ORDERED: Naloxone 0.4 MG/ML SDV IVPUSH PRN (07:24)
[2024-05-26] MEDS ORDERED: HYDROmorphone 1 MG/ML Syringe IVPUSH PRN (07:24)
[2024-05-26] MEDS ORDERED: Morphine 2 MG/ML SYRINGE IVPUSH PRN (07:24)
[2024-05-26] MEDS: Lactated Ringers 1,000 ML IV SCH (07:30)
[2024-05-26] MEDS ORDERED: Morphine 10 MG/ML SDV ONE (07:30)
[2024-05-26] MEDS ORDERED: dexmedeTOMIDine HCl 200 MCG/2 ML SDV ONE (07:30)
[2024-05-26] MEDS ORDERED: Propofol 200 MG/20 ML SDV ONE (07:31)
[2024-05-26] MEDS ORDERED: fentaNYL 250 MCG/5 ML SDV ONE (07:31)
[2024-05-26] MEDS ORDERED: Ropivacaine 0.5% 5 MG/ML 30 ML SDV ONE (07:32)
[2024-05-26] MEDS ORDERED: Water For Injection, Sterile 20 ML ONE (07:33)
[2024-05-26] MEDS ORDERED: ceFAZolin 2 GM Vial ONE (07:59)
[2024-05-26] MEDS ORDERED: Ketamine HCL/NACL, ISO-OSM 50 MG/5 ML Syringe ONE (08:01)
[2024-05-26] MEDS ORDERED: ePHEDrine 50 MG/ML SDV ONE (08:10)
[2024-05-26] MEDS ORDERED: Phenylephrine HCl In 0.9% NaCl 1 MG/10 ML Syringe ONE (08:14)
[2024-05-26] MEDS ORDERED: Glycopyrrolate 0.2 MG/ML SDV ONE (08:20)
[2024-05-26] MEDS ORDERED: Ketorolac 30 MG/ML SDV ONE (08:23)
[2024-05-26] MEDS ORDERED: Dexamethasone 4 MG/ML 5 ML MDV ONE (08:23)
[2024-05-26] MEDS ORDERED: Ondansetron 4 MG/2 ML SDV ONE (08:23)
[2024-05-26 11:12] VITALS: BP 109/62; PULSE 65
== END 2024-05-26 12:00 | disposition home or self-care (01) ==
LOC: MW.SDS 06:48
PROVIDERS: ATTEND Surgery
DX: K40.90 Unilateral inguinal hernia, without obstruction or gangrene, not specified as recurrent (principal); F17.210 Nicotine dependence, cigarettes, uncomplicated
CPT/HCPCS: 49505; J0131; J0665; J0690; J1100; J1596; J1885; J2272; J2371; J2405; J2704; J2795; J3010; J7120; J3490

== ENCOUNTER 2025-04-22 22:22 | Emergency (ER) | payer MEDICAID ==
[2025-04-23] MEDS: Tetracaine HCl/PF 0.5% 4 ML Bottle EYELF ONE (01:07)
[2025-04-23] MEDS: Fluorescein 1 MG Ophth Strip EYELF ONE (01:07)
[2025-04-23 02:59] VITALS: BP 111/64; PULSE 75
[2025-04-23] MEDS: Ofloxacin 0.3% Ophth Soln 5 ML Bottle EYERT STA (03:02)
[2025-04-23] MEDS ORDERED: Ofloxacin 0.3% Ophth Soln 5 ML Bottle EYERT SCH (09:00)
== END 2025-04-23 02:58 | disposition home or self-care (01) ==
LOC: MW.ED 22:22
DX: S05.01XA Injury of conjunctiva and corneal abrasion without foreign body, right eye, initial encounter (principal); F17.200 Nicotine dependence, unspecified, uncomplicated; X58.XXXA Exposure to other specified factors, initial encounter
CPT/HCPCS: 99283; A9270; J3490